=== PATIENT | female | born 1970 | race Caucasian/White ===

== ENCOUNTER 2021-01-30 04:44 | Day surgery (SDC) | payer OTHER ==
[2021-01-26 14:15] VITALS: BMI 25.7
[2021-01-30] MEDS ORDERED: LIDOCAINE HCL/PF 2% SDV 5ML VIAL ONE ×2 (12:16→13:58)
[2021-01-30] MEDS ORDERED: PROPOFOL 20 ML ONE ×3 (12:17)
[2021-01-30] MEDS ORDERED: MIDAZOLAM HCL 2 MG/2 ML SINGLE DOSE VIAL ONE (12:18)
[2021-01-30] MEDS ORDERED: ceFAZolin SODIUM 1 GM VIAL ONE (13:14)
[2021-01-30] MEDS ORDERED: ceFAZolin SODIUM 1 GM VIAL IVPB ONE (13:45)
[2021-01-30] MEDS ORDERED: ACETAMINOPHEN INJECTION 200 ML IVPB ONE (13:46)
[2021-01-30] MEDS ORDERED: LIDOCAINE HCL 2% JELLY (5 ML/TUBE) ONE (13:56)
[2021-01-30] MEDS ORDERED: ACETAMINOPHEN 1000 MG/100 ML VIAL (NON FORMULARY) IVPB ONE ×2 (14:19→16:15)
[2021-01-30] MEDS ORDERED: DEXTROSE 5%-0.45% SALINE 1,000 ML IV SCH (14:30)
[2021-01-30] MEDS ORDERED: IBUPROFEN 800 MG/8 ML IJ IVPB SCH (14:30)
[2021-01-30] MEDS ORDERED: ONDANSETRON 4 MG/2 ML VIAL ONE (14:43)
[2021-01-30] MEDS ORDERED: PROMETHAZINE HCL 25 MG/1 ML VIAL IVPB PRN (14:44)
[2021-01-30] MEDS ORDERED: ONDANSETRON 4 MG/2 ML VIAL IVPUSH PRN (14:44)
[2021-01-30] MEDS ORDERED: LACTATED RINGERS SOLUTION 1,000 ML IV SCH (14:45)
[2021-01-30 15:47] VITALS: TEMP 97.5
[2021-01-30] MEDS ORDERED: ACETAMINOPHEN INJECTION 100 ML IVPB ONE (16:13)
[2021-01-30 18:57] VITALS: BP 122/76; PULSE 97
== END 2021-01-30 17:40 | disposition home or self-care (01) ==
LOC: JASU-SURG 04:44
PROVIDERS: ATTEND Urology
PROC: 0TC48ZZ Extirpation of Matter from Left Kidney Pelvis, Via Natural or Artificial Opening Endoscopic (ICD-10-PCS; principal; 2021-01-30 12:00)
PROC: 0TC78ZZ Extirpation of Matter from Left Ureter, Via Natural or Artificial Opening Endoscopic (ICD-10-PCS; 2021-01-30 12:00)
PROC: 0T778DZ Dilation of Left Ureter with Intraluminal Device, Via Natural or Artificial Opening Endoscopic (ICD-10-PCS; 2021-01-30 12:00)
DX: N20.0 Calculus of kidney (principal); N20.1 Calculus of ureter; I10 Essential (primary) hypertension; E11.9 Type 2 diabetes mellitus without complications; Z79.84 Long term (current) use of oral hypoglycemic drugs
CPT/HCPCS: 94760; J0131

== ENCOUNTER 2021-08-16 04:34 | Day surgery (SDC) | payer OTHER ==
[2021-08-14 16:17] VITALS: BMI 25.8
[2021-08-16] MEDS ORDERED: SCOPOLAMINE HYDROBROMIDE 1 PATCH PATCH.TD72 ONE (14:28)
[2021-08-16] MEDS ORDERED: DEXTROSE 5%-0.45% SALINE 1,000 ML IV SCH (14:30)
[2021-08-16] MEDS ORDERED: ACETAMINOPHEN 1000 MG/100 ML BAG IVPB ONE (14:31)
[2021-08-16] MEDS ORDERED: MIDAZOLAM HCL 2 MG/2 ML SINGLE DOSE VIAL ONE (14:48)
[2021-08-16] MEDS ORDERED: PROPOFOL 20 ML ONE (14:53)
[2021-08-16] MEDS ORDERED: ceFAZolin SODIUM 1 GM VIAL IVPB ONE (14:55)
[2021-08-16] MEDS ORDERED: ceFAZolin SODIUM 1 GM VIAL ONE (15:15)
[2021-08-16] MEDS ORDERED: KETOROLAC TROMETHAMINE 30 MG/1 ML VIAL ONE (15:15)
[2021-08-16] MEDS ORDERED: DEXAMETHASONE SOD PHOSPHATE 4 MG/1 ML VIAL ONE (15:15)
[2021-08-16] MEDS ORDERED: ONDANSETRON 4 MG/2 ML VIAL IVPUSH PRN (15:33)
[2021-08-16] MEDS ORDERED: oxyCODONE HCL 5 MG TABLET PO PRN (15:33)
[2021-08-16] MEDS ORDERED: LACTATED RINGERS SOLUTION 1,000 ML IV SCH (15:45)
[2021-08-16] MEDS ORDERED: ACETAMINOPHEN INJECTION 100 ML IVPB ONE (15:49)
[2021-08-16 17:21] VITALS: PULSE 56; TEMP 97.6
[2021-08-16] MEDS ORDERED: IBUPROFEN 800 MG/8 ML IJ IVPB SCH (18:00)
[2021-08-16 18:24] VITALS: BP 145/70
== END 2021-08-16 18:30 | disposition home or self-care (01) ==
LOC: JASU-SURG 04:34
PROVIDERS: ATTEND Urology
PROC: 0TC48ZZ Extirpation of Matter from Left Kidney Pelvis, Via Natural or Artificial Opening Endoscopic (ICD-10-PCS; principal; 2021-08-16 14:00)
PROC: 0T778DZ Dilation of Left Ureter with Intraluminal Device, Via Natural or Artificial Opening Endoscopic (ICD-10-PCS; 2021-08-16 14:00)
DX: N20.0 Calculus of kidney (principal)
CPT/HCPCS: 76000-TC-FY; 82962; 94760; J0131

== ENCOUNTER 2022-09-19 03:49 | Day surgery (SDC) | payer OTHER ==
[2022-09-17 16:54] VITALS: BMI 25.8
[2022-09-19 06:18] VITALS: RESP 18
[2022-09-19] MEDS ORDERED: LIDOCAINE HCL/PF 2% SDV 5ML VIAL ONE (07:15)
[2022-09-19] MEDS ORDERED: PROPOFOL 40 ML ONE (07:15)
[2022-09-19] MEDS ORDERED: MIDAZOLAM HCL 2 MG/2 ML SINGLE DOSE VIAL ONE (07:32)
[2022-09-19] MEDS ORDERED: GENTAMICIN SO4 80 MG/2 ML VIAL IVPB ONE (07:38)
[2022-09-19] MEDS ORDERED: ceFAZolin SODIUM 1 GM VIAL IVPB ONE (07:38)
[2022-09-19] MEDS ORDERED: IOHEXOL 300 MG/ML INFUS..BTL IV ONE ×2 (07:40→07:49)
[2022-09-19] MEDS ORDERED: GENTAMICIN SO4 80 MG/2 ML VIAL ONE ×2 (07:41)
[2022-09-19] MEDS ORDERED: ceFAZolin SODIUM 1 GM VIAL ONE (07:42)
[2022-09-19] MEDS ORDERED: FUROSEMIDE 40 MG/4 ML INJECTABLE VIAL ONE ×2 (07:56→07:58)
[2022-09-19] MEDS ORDERED: KETOROLAC TROMETHAMINE 30 MG/1 ML VIAL ONE (08:01)
[2022-09-19] MEDS ORDERED: oxyCODONE HCL 5 MG TABLET PO PRN ×2 (08:29→08:45)
[2022-09-19] MEDS ORDERED: DEXTROSE 5%-0.45% SALINE 1,000 ML IV SCH (08:30)
[2022-09-19] MEDS ORDERED: LACTATED RINGERS SOLUTION 1,000 ML IV SCH (08:45)
[2022-09-19] MEDS ORDERED: ACETAMINOPHEN 1000 MG/100 ML BAG IVPB ONE (08:45)
[2022-09-19] MEDS ORDERED: ONDANSETRON 4 MG/2 ML VIAL IVPUSH PRN (08:45)
[2022-09-19] MEDS ORDERED: ACETAMINOPHEN INJECTION 100 ML IVPB ONE (09:19)
[2022-09-19 10:09] VITALS: BP 118/79; PULSE 75; TEMP 98.8
[2022-09-25 17:07] LABS: CA OXALATE MONOHYDR. 80 % (.); SIZE 3x2 mm (.); WEIGHT 8 mg (.)
== END 2022-09-19 10:40 | disposition home or self-care (01) ==
LOC: JASU-SURG 03:49
PROVIDERS: ATTEND Urology
PROC: 0TC18ZZ Extirpation of Matter from Left Kidney, Via Natural or Artificial Opening Endoscopic (ICD-10-PCS; principal; 2022-09-19 07:30)
PROC: 0T778DZ Dilation of Left Ureter with Intraluminal Device, Via Natural or Artificial Opening Endoscopic (ICD-10-PCS; 2022-09-19 07:30)
DX: N20.0 Calculus of kidney (principal)
CPT/HCPCS: 36415; 76000-TC-FY; 82360; 82962; 88300-TC; 94760; C1758; C2617

== ENCOUNTER 2024-05-11 04:12 | Day surgery (SDC) | payer OTHER ==
[2024-05-11] MEDS ORDERED: MIDAZOLAM HCL 2 MG/2 ML SINGLE DOSE VIAL ONE (07:16)
[2024-05-11] MEDS ORDERED: KETOROLAC TROMETHAMINE 30 MG/1 ML VIAL ONE (07:17)
[2024-05-11] MEDS ORDERED: ONDANSETRON 4 MG/2 ML VIAL ONE (07:17)
[2024-05-11] MEDS ORDERED: PROPOFOL 20 ML ONE (07:20)
[2024-05-11] MEDS ORDERED: SUCCINYLCHOLINE CHLORIDE 200 MG/10 ML SYRINGE ONE (07:20)
[2024-05-11] MEDS: ceFAZolin SODIUM 1 GM VIAL IVPB ONE (07:51)
[2024-05-11] MEDS ORDERED: ceFAZolin SODIUM 1 GM VIAL ONE (07:53)
[2024-05-11] MEDS ORDERED: oxyCODONE HCL 5 MG TABLET PO PRN (07:58)
[2024-05-11] MEDS ORDERED: DEXTROSE 5%-0.45% SALINE 1,000 ML IV SCH (08:00)
[2024-05-11 11:10] VITALS: BP 117/58; PULSE 65; RESP 20; TEMP 96.8
== END 2024-05-11 11:00 | disposition home or self-care (01) ==
LOC: JASU-SURG 04:12
PROVIDERS: ATTEND Urology
PROC: 0TF4XZZ Fragmentation in Left Kidney Pelvis, External Approach (ICD-10-PCS; principal; 2024-05-11 07:30)
DX: N20.0 Calculus of kidney (principal)
CPT/HCPCS: 82962